=== PATIENT | female | born 1960 | race Caucasian/White ===

== ENCOUNTER 2018-03-15 23:38 | Emergency (ER) | END 2018-03-16 00:56 | disposition home or self-care (01) ==

== ENCOUNTER 2018-05-25 14:07 | Emergency (ER) | payer MEDICAID ==
[~2018-05-25] VITALS: Wt 80.0 kg
[~2018-05-25 14:07] MED LIST: ATEN-51 PO; CYCL10TA7 PO; HYDR-3498 PO; HYDR25TA6 PO; IBUP-1542 PO; NITR-58 PO
[2018-05-25 14:11] VITALS: BP 152/80; PULSE 80; RESP 18
[2018-05-25] MEDS ORDERED: IBUPROFEN 600 MG TAB PO ONE (16:00)
[2018-05-25] MEDS ORDERED: IBUP-1542 PO (16:58)
--- NOTE | 2018-05-25 17:01 | ERD ---
ER Documentation Chief Complaint Chief Complaint MECH FALL, HAS RIGHT ANKLE PAIN HPI This 57-year-old female presents with pain in her right ankle after falling today. She denies any restricted range of motion subcu pain. She denies any head injury, additional injuries. ROS All systems reviewed and are negative except as per history of present illness. Medications Home Meds Active Scripts Ibuprofen* (Motrin*) 600 Mg Tab, 600 MG PO Q6, #20 TAB Prov:CANDIDO FAGAN MD 05/25/18 Nitrofurantoin Monohyd Macrocr* (Macrobid*) 100 Mg Capsr, 100 MG PO BID for 7 Days, CAP Prov:LANNY MCCORD PA-C 03/16/18 Ibuprofen* (Motrin*) 600 Mg Tab, 600 MG PO Q6H PRN for PAIN AND OR ELEVATED TEMP, #30 TAB Prov:NORA COFFEY NP 10/27/15 Cyclobenzaprine Hcl* (Cyclobenzaprine Hcl*) 10 Mg Tablet, 10 MG PO TID, #15 TAB Prov:NORA COFFEY NP 10/27/15 Hydrocodone Bit-Acetaminophen* (Tyler*) 5-325 Mg Tab, 1 TAB PO Q6 PRN for PAIN, #20 TAB Prov:NORA COFFEY NP 10/27/15 Reported Medications Hydrochlorothiazide (Hydrochlorothiazide) 25 Mg Tablet, 25 PO DAILY 10/27/15 Atenolol* (Atenolol*) 25 Mg Tablet, 50 MG PO DAILY, TAB 0 Refills 07/02/14 Allergies Allergies: Coded Allergies: No Known Allergy (Unverified , 10/27/15) PMhx/Soc History of Surgery: No Anesthesia Reaction: No Hx Neurological Disorder: No Hx Respiratory Disorders: No Hx Cardiac Disorders: Yes (hypertension) Hx Psychiatric Problems: No Hx Miscellaneous Medical Probl: Yes (high cholesterol) Hx Alcohol Use: No Hx Substance Use: No Hx Tobacco Use: No Smoking Status: Never smoker FmHx Family History: No diabetes, No coronary disease, No other Physical Exam Vitals Vital Signs Date Temp Pulse Resp B/P (MAP) Pulse Ox O2 O2 Flow FiO2 Time Delivery Rate 05/25/18 98.1 80 18 152/80 99 14:11 (104) Physical Exam Const: No acute distress Head: Atraumatic Eyes: Normal Conjunctiva ENT: Normal External Ears, Nose and Mouth. Neck: Full range of motion. No meningismus. Resp: Clear to auscultation bilaterally Cardio: Regular rate and rhythm, no murmurs Abd: Soft, non tender, non distended. Normal bowel sounds Skin: No petechiae or rashes Back: No midline or flank tenderness Ext: No cyanosis, or edema. Tenderness primarily in the right fifth metatarsal area and lateral ankle joint. Minimal swelling. No restricted range of motion or deficits. No warmth or erythema or bleeding. Neur: Awake and alert Psych: Normal Mood and Affect Results 24 hrs Current Medications Medications Dose Sig/Nicki Start Time Status Last (Trade) Ordered Route PRN Stop Time Admin Dose Reason Admin Ibuprofen 600 mg ONCE ONCE 05/25/18 DC 05/25/18 (Motrin) PO 16:00 15:48 05/25/18 16:01 Procedures/MDM X-ray Ankle 3V Interpreted by me: Bones: No fracture Joints: No dislocation Foreign Body: None. Impression-normal right ankle x-ray with soft tissue swelling only. X-ray Foot 3V Interpreted by me: Bones: Cortical irregularity at the anterior talus without other appreciable fracture. Joints: No dislocation Foreign body: None. Impression-possible cortical irregularity at the anterior talus. Patient is nontender in the area of abnormality seen on x-ray. Her tenderness is primarily in the fifth metatarsal and lateral ankle joint. Patient is placed in a right lower extremity walker boot and was neurovascular intact after the boot. She is also given crutches with crutch training and ibuprofen. She will be discharged home with crutches, boot, recommendations for primary care follow- up and orthopedic follow-up for pain next week. There is no current signs of infection, ischemia or deficits. The patient was stable with no new complaints during the ER course. Clinically, there is no current evidence to suggest meningitis, sepsis, acute abdomen, pneumonia, stroke, acute coronary syndrome, pulmonary embolism, aortic dissection or any other emergent condition appearing to require further evaluation or hospitalization. Patient counseled regarding my diagnostic impression and care plan. Prior to discharge all questions answered. Pt agrees with treatment plan and understands strict return precautions. Pt is instructed to follow up with primary care provider within 24- 48 hours. Precautionary instructions provided including instructions to return to the ER if not improving or for any worsening or changing symptoms or concerns. Departure Diagnosis: Primary Impression: Ankle injury Encounter type: initial encounter Laterality: right Qualified Codes: S99.911A - Unspecified injury of right ankle, initial encounter Patient Instructions: What Are Ankle Sprains?, Treating Ankle Sprains Referrals: DOCTOR,NOT ON STAFF (PCP) [facility] Usted se taylor hecho un examen mdico de control que le indica que no est en colton condicin que requiera tratamiento urgente en el Departamento de Emergencia. Un estudio ms profundo y el tratamiento de frances condicin pueden esperar sin ningn riesgo hasta que usted sea atendida/o en el consultorio de frances mdico o colton clnica. Es responsabilidad suya arreglar colton victorino para el seguimiento del max. MANEJO DE CONDICIONES NO URGENTES EN EL FUTURO 1) Si usted tiene un mdico de atencin primaria: Usted debera llamar a frances mdico de atencin primaria antes de venir al departamento de emergencia. Despus de las horas de consultorio, frances doctor o frances asociado/a est disponible por telfono. El mdico o enfermero de amadeo en el servicio telefnico puede asesorarle por nani medio para atender el problema, o max contrario se puede programar colton victorino. 2) Si usted no tiene un mdico de atencin primaria: Llame al mdico o clnica de referencia que aparece abajo tara las horas de consultorio para hacer colton victorino para que le vean. CLINICAS: [facility] [phone] [facility] [phone] [facility] [phone] [facility] [phone] [facility] [phone] [id number] [facility] [phone] [address] Additional Instructions: no hay fractura donde tiene dolor. posiblemente fractura en el parte kwaku no toine dolor ( probablamente aylin) Va al frances doctor/ specialista para mas evaluacon en el proximo semana. posiblemente necesita autorizado de frances doctor primario para specialista. Regresa para fiebre, o mas o nueva simptomas. CANDIDO FAGAN MD May 25, 2018 17:01
== END 2018-05-25 17:19 | disposition home or self-care (01) ==
LOC: FTE 14:07
DX: S99.911A Unspecified injury of right ankle, initial encounter (principal); I10 Essential (primary) hypertension; W18.39XA Other fall on same level, initial encounter; Y92.9 Unspecified place or not applicable
CPT/HCPCS: 73610; 73630; Z7502; Z7610